=== PATIENT | male | born 2000 | race Caucasian/White ===

== ENCOUNTER 2023-04-08 16:21 | Emergency (ER) | payer OTHER ==
[~2023-04-08] VITALS: Ht 172.7 cm; Wt 99.8 kg
[2023-04-08 16:43] VITALS: BP 169/99
== END 2023-04-08 18:22 | disposition home or self-care (01) ==
LOC: ER 16:21
DX: S52.91XD Unspecified fracture of right forearm, subsequent encounter for closed fracture with routine healing (principal); W19.XXXD Unspecified fall, subsequent encounter; Z98.890 Other specified postprocedural states
CPT/HCPCS: 73090; 99283-25

== ENCOUNTER 2024-09-18 09:46 | Day surgery (SDC) | payer OTHER ==
[~2024-09-18] VITALS: Ht 180.3 cm; Wt 100.1 kg
[2024-09-18] MEDS ORDERED: Lactated Ringer's 1,000 ML IV ONE ×2 (09:54→10:21)
[2024-09-18] MEDS ORDERED: CeFAZolin Sodium 2,000 MG VIAL ONE (09:58)
[2024-09-18] MEDS ORDERED: Bupivacaine HCl 0.25% 30 ML Injection ONE (10:13)
[2024-09-18] MEDS ORDERED: propofoL 20 ML IV ONE (10:13)
[2024-09-18] MEDS ORDERED: Midazolam HCl 1MG / ML 2ML Vial ONE (10:13)
[2024-09-18] MEDS ORDERED: FentaNYL Citrate 50 MCG/ML 2 ML Injection ONE ×2 (10:13→12:09)
--- NOTE | 2024-09-18 11:05 | NUR ---
09/18/[address] removed cast at bedside at ~1055
[2024-09-18] MEDS ORDERED: Dexamethasone Sod Phos 10 MG/ML 1ML VIAL ONE (11:20)
[2024-09-18] MEDS ORDERED: Ondansetron HCl 2 MG / ML 2ML Vial ONE (11:20)
--- NOTE | 2024-09-18 12:53 | NUR ---
09/18/24 1253 Katie Vallejo PT SITTING UP IN CART W/O COMPLAINT. VSS, ON RA. PT STATES PAIN LEVEL 4/10 AT THIS TIME & TOLERABLE.
[2024-09-18] MEDS ORDERED: HYDROcodone 5-APAP 325 TAB ONE (13:17)
[2024-09-18 13:41] VITALS: BP 164/92
== END 2024-09-18 13:54 | disposition home or self-care (01) ==
LOC: ORSCSDS 09:46
PROVIDERS: Orthopaedic Surgery
PROC: 0PSN04Z Reposition Left Carpal with Internal Fixation Device, Open Approach (ICD-10-PCS; principal; 2024-09-18 11:15)
DX: S62.022A Displaced fracture of middle third of navicular [scaphoid] bone of left wrist, initial encounter for closed fracture (principal); S63.8X2A Sprain of other part of left wrist and hand, initial encounter; V19.3XXA Pedal cyclist (driver) (passenger) injured in unspecified nontraffic accident, initial encounter
CPT/HCPCS: A9270; C1713; J0690; J1100; J2250; J2405; J2704; J3010; J7120